=== PATIENT | male | born 1985 | race Two or more races ===

== ENCOUNTER 2023-10-23 13:14 | Emergency (ER) | payer OTHER ==
[~2023-10-23] VITALS: Ht 185.4 cm; Wt 86.6 kg
[2023-10-23] MEDS: SODIUM CHLORIDE 0.9% 1,000 ML IV ONE (13:42)
[2023-10-23] MEDS: LORazepam 2MG/ML-1ML VIAL IV ONE (13:46)
[2023-10-23 14:09] LABS: Basophils # (auto) 0.1 10 ^3/uL (0-0.2); Basophils % (auto) 0.7 % (0.0-2.0); Eosinophils # (auto) 0 10 ^3/uL (0-0.8); Eosinophils % (auto) 0.2 % (0.0-7.0); Hematocrit 51.3 % (41.0-53.0); Hemoglobin 17.2 g/dL (13.5-17.5); Lymphocytes # (auto) 1.7 10 ^3/uL (0.4-5.4); Lymphocytes % (auto) 15.6 % (10.0-50.0); Mean Corpuscular Hemoglobin 28.8 pg (28.0-32.0); Mean Corpuscular Hgb Conc. 33.5 g/dL (32.0-36.0); Mean Corpuscular Volume 85.8 fL (80.0-100.0); Monocytes # (auto) 0.6 10 ^3/uL (0-1.3); Monocytes % (auto) 5.6 % (0.0-12.0); Neutrophils # (auto) 8.6 10 ^3/uL (1.6-8.6); Neutrophils % (auto) 77.9 % (37.0-80.0); Nucleated Red Blood Cells % 0.1 %; Red Blood Cells 5.98 10^6/uL (4.5-5.90); Red Cell Distribution Width 13.2 % (11.8-14.3)
[2023-10-23 14:16] LABS: Chloride 105 mmol/L (98-107); Potassium 4.1 mmol/L (3.5-5.1); Sodium 137 mmol/L (136-145)
[2023-10-23 14:17] LABS: Anion Gap 14 (5-15); Carbon Dioxide 18 mmol/L (20-30)
[2023-10-23 14:18] LABS: Calcium 10.3 mg/dL (8.7-10.4)
[2023-10-23 14:22] LABS: BUN/Creatinine Ratio 5.8 (10.0-20.0); Blood Urea Nitrogen 6 mg/dL (9-23); Glucose 116 mg/dL (74-106)
[2023-10-23 16:42] VITALS: BP 135/91; PULSE 87; RESP 15; TEMP 97.6; O2SAT 100
[2023-10-23] MEDS ORDERED: LORA-1121 PO (16:43)
== END 2023-10-23 20:09 | disposition home or self-care (01) ==
LOC: ER 13:14 → EDBD 13:14 → ER 20:09
DX: F41.9 Anxiety disorder, unspecified (principal); F12.10 Cannabis abuse, uncomplicated
CPT/HCPCS: 36415; 80048; 84484; 85025; 93005; 96361; 96374; 99284; J2060; J7030

== ENCOUNTER 2024-07-31 14:16 | Emergency (ER) | payer OTHER ==
[~2024-07-31 14:16] MED LIST: LORA-1121 PO
== END 2024-07-31 14:36 | disposition left against medical advice (07) ==
LOC: ER 14:16
DX: M79.89 Other specified soft tissue disorders (principal); Z53.21 Procedure and treatment not carried out due to patient leaving prior to being seen by health care provider